=== PATIENT | female | born 1990 | race African-American/Black ===

== ENCOUNTER 2017-01-08 00:50 | Emergency (ER) | payer OTHER ==
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
[2017-01-08 02:51] VITALS: BP 115/77
--- NOTE | 2017-01-08 03:54 | Diagnostic Imaging Report ---
TAYA SANDRA~ [facility] [id number] [facility] [address] [address] ~ ~ ~ ~ Report Submission Date: Jan 08, 2017 2:14:26 AM CDT Patient ~ Study Name: CARLA AVILA ~ Date: Jan 08, 2017 1:51:46 AM CDT ~ Modality Type: CR Gender: F ~ Description: LOWER EXTREMITY : 91 ~ Institution: [facility] Physician: TAYA SANDRA ~ ~ ~ ~ Left ankle 3 views History: Pain after injury Findings: Left ankle is unremarkable without fracture, dislocation, arthropathy , or focal bone lesion. ~ Electronically signed on Jan 08, 2017 2:14:26 AM CDT by: Ronni SOL
--- NOTE | 2017-01-08 03:55 | Diagnostic Imaging Report ---
TAYA SANDRA~ [facility] [address] [facility] [address] [address] ~ ~ ~ ~ Report Submission Date: Jan 08, 2017 2:15:21 AM CDT Patient ~ Study Name: CARLA AVILA ~ Date: Jan 08, 2017 1:55:57 AM CDT ~ Modality Type: CR Gender: F ~ Description: LOWER EXTREMITY : 91 ~ Institution: [facility] Physician: TAYA SANDRA ~ ~ ~ ~ Left calcaneus 2 views History: Pain after injury Findings: The left calcaneus is unremarkable without fracture, dislocation, arthropathy, or focal bone lesion. ~ Electronically signed on Jan 08, 2017 2:15:21 AM CDT by: Ronni SOL
== END 2017-01-08 02:45 | disposition home or self-care (01) ==
LOC: ED 00:50
DX: S93.402A Sprain of unspecified ligament of left ankle, initial encounter (principal); X58.XXXA Exposure to other specified factors, initial encounter; Y93.9 Activity, unspecified; Y99.9 Unspecified external cause status
CPT/HCPCS: 73610; 73650; 99283; L4350

== ENCOUNTER 2018-07-08 02:43 | Emergency (ER) | payer OTHER ==
[2018-07-08] MEDS ORDERED: LIDOCAINE HCL 1% PF 50MG/5ML AMP (IM/SUTURE/PAIN CLINIC) IJ ONE (03:08)
[2018-07-08 03:10] VITALS: BP 133/77
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
[2018-07-08] MEDS ORDERED: NEOMYCIN/BACITRACIN/POLYMYXINB OINT 15 GM TP ONE (03:45)
== END 2018-07-08 03:58 | disposition home or self-care (01) ==
LOC: ED 02:43
DX: S61.217A Laceration without foreign body of left little finger without damage to nail, initial encounter (principal); W26.0XXA Contact with knife, initial encounter; Y93.89 Activity, other specified; Y92.9 Unspecified place or not applicable
CPT/HCPCS: 12001; 99282